=== PATIENT | male | born 1940 | race Caucasian/White ===

== ENCOUNTER 2017-08-03 07:27 | Inpatient (IN) | payer OTHER, MEDICARE ==
[~2017-08-03] VITALS: Ht 172.7 cm; Wt 87.7 kg
[2017-08-03] VITALS (12 sets, daily range): BP systolic 111–185; BP diastolic 58–95; PULSE 77–124; RESP 16–20; TEMP 96.4–98.6; O2SAT 94–98
[~2017-08-03 07:27] MED LIST: ALPR-138 PO; ASPI81TA82 PO; ATEN1TAB75 PO; BACT800T5 PO; DYAZ37.52 PO; FENO54TA PO; HYDR-3534 PO; LANTUS2P SC; LISI40TA PO
[2017-08-03] MEDS ORDERED: SODIUM CHLOR 0.9% 1000 ML INJ 1,000 ML IV SCH ×2 (07:41→12:15)
[2017-08-03] MEDS ORDERED: LIDOCAINE VISCOUS 2% SOLN 15 ML UDC PO ONE (07:45)
[2017-08-03] MEDS ORDERED: ALUMINUM/MAGNESIUM/SIMETH 30 ML CUP PO ONE (07:45)
[2017-08-03] MEDS ORDERED: PANTOPRAZOLE SODIUM 40 MG VIAL IVP ONE (07:45)
[2017-08-03] MEDS ORDERED: DICYCLOMINE HCL 20 MG/2 ML VIAL IM ONE (07:45)
[2017-08-03] MEDS ORDERED: FAMOTIDINE 20 MG/2 ML VIAL IV PUSH ONE (07:45)
--- NOTE | 2017-08-03 07:47 | PD ---
HPI Chief Complaint: GI Complaint Time Seen by Provider: 07:41 Travel History International Travel<30 days: No Contact w/Intl Traveler<30days: No Traveled to known affect area: No History of Present Illness HPI Patient presents with complaints of nausea vomiting and diarrhea. Evaluated at [facility] yesterday and prescribed Reglan. Patient did not fill prescription. Reports generalized weakness. Reports concerns of dysphagia. States he is unable to take his medications this morning. Complains of generalized weakness. Complains of nausea without vomiting. Received of 300 cc normal saline and Zofran in route. Blood sugar in route 400. History of anxiety hypertension diabetes and hyperlipidemia. States he is taking none of his oral medications for approximately 3 days. He did take his Lantus last night. PFSH Past Medical History Arthritis: Yes Anxiety: Yes Cancer: Yes (SKIN) High Cholesterol: Yes Diabetes: Yes Diminished Hearing: Yes (no hearing aids) Diverticulitis: Yes GERD: Yes Genitourinary: Yes (decreased kidney function, difficulty urinating enlarged prostate) Hypertension: Yes Past Surgical History Abdominal Surgery: Yes (RIGHT HERNIA INGUINAL ) Cholecystectomy: Yes Tonsillectomy: Yes Social History Alcohol Use: Yes (6-7 BEERS a day) Tobacco Use: No (quit 14 yrs ago smoked cigars, pipes and cigs) Substance Use: No Allergies-Medications (Allergen,Severity, Reaction): Coded Allergies: No Known Allergies (Verified , 10/24/15) Reported Meds & Prescriptions Reported Meds & Active Scripts Active Reported Vitamin E 200 Unit Cap 200 Units PO DAILY Milk Thistle 500 Mg Capsule 1,000 Mg PO DAILY Cranberry Urinary Comfort (Vitamins C & E) 1 Cap 1 Cap PO DAILY [place]-3 Fish Oil/Vitamin (Fish Oil-Cholecalciferol) 1,000-1,000 Mg Cap 1 Cap PO DAILY Atenolol 100 Mg Tab 100 Mg PO DAILY Ranitidine (Ranitidine HCl) 150 Mg Tab 150 Mg PO BID Fenofibrate Micronized 134 Mg Cap 134 Mg PO DAILY Glimepiride 4 Mg Tab 4 Mg PO BIDAC Lisinopril 40 Mg Tab 40 Mg PO DAILY Triamterene-Hydrochlorothiazide 37.5-25 Mg Cap 2 Cap PO DAILY Alprazolam 0.25 Mg Tab 0.25 Mg PO DAILY PRN Tamsulosin (Tamsulosin HCl) 0.4 Mg Cap 0.4 Mg PO HS Lantus Inj (Insulin Glargine) 1,000 Unit/10 Ml Vial 30 Units SQ BID Review of Systems General / Constitutional: No: Fever Eyes: No: Visual changes HENT: No: Headaches Cardiovascular: No: Chest Pain or Discomfort Respiratory: No: Shortness of Breath Gastrointestinal: Positive: Nausea, Vomiting, Diarrhea, No: Abdominal Pain Genitourinary: No: Dysuria Musculoskeletal: No: Pain Skin: No Rash Neurologic: No: Weakness Psychiatric: No: Depression Endocrine: No: Polydipsia Hematologic/Lymphatic: No: Easy Bruising Physical Exam Narrative GENERAL: Well-nourished, well-developed patient. SKIN: Focused skin assessment warm/dry. HEAD: Normocephalic. EYES: No scleral icterus. No injection or drainage. NECK: Supple, trachea midline. No JVD or lymphadenopathy. CARDIOVASCULAR: Regular rate and rhythm without murmurs, gallops, or rubs. RESPIRATORY: Breath sounds equal bilaterally. No accessory muscle use. GASTROINTESTINAL: Abdomen soft, non-tender, nondistended. MUSCULOSKELETAL: No cyanosis, or edema. BACK: Nontender without obvious deformity. No CVA tenderness. Data Data Last Documented VS Vital Signs Date Time Temp Pulse Resp B/P (MAP) Pulse Ox O2 Delivery O2 Flow Rate FiO2 08/03/17 11:03 124 16 163/95 (117) 97 Room Air 08/03/17 07:29 97.8 Orders Orders Complete Blood Count With Diff (08/03/17 07:41) Comprehensive Metabolic Panel (08/03/17 07:41) Lipase (08/03/17 07:41) Lactic Acid (08/03/17 07:41) Urinalysis - C+S If Indicated (08/03/17 07:41) Iv Access Insert/Monitor (08/03/17 07:41) Ecg Monitoring (08/03/17 07:41) Oximetry (08/03/17 07:41) Pantoprazole Inj (Protonix Inj) (08/03/17 07:45) Sodium Chlor 0.9% 1000 Ml Inj (Ns 1000 M (08/03/17 07:41) Sodium Chloride 0.9% Flush (Ns Flush) (08/03/17 07:45) Famotidine Inj (Pepcid Inj) (08/03/17 07:45) Dicyclomine Inj (Bentyl Inj) (08/03/17 07:45) Al-Mag Hy-Si 40-40-4 Mg/Ml Liq (Mag-Al P (08/03/17 07:45) Lidocaine 2% Viscous (Xylocaine 2% Visco (08/03/17 07:45) Famotidine (Pepcid) (08/03/17 08:30) Ct Abd/Pel W Iv Contrast(Rout) (08/03/17 ) Iodixanol 320 Inj (Rad Ct) (Visipaque 32 (08/03/17 10:40) Labetalol Inj (Trandate Inj) (08/03/17 11:15) Electrocardiogram (08/03/17 ) Sodium Chlor 0.9% 1000 Ml Inj (Ns 1000 M (08/03/17 12:15) Admit To Inpatient (08/03/17 ) Vital Signs (Adult) GA.Q4H (08/03/17 12:22) Activity Oob With Assistance (08/03/17 12:22) Diet Clear Liquid (08/03/17 Lunch) Sodium Chlor 0.45% 1000 Ml Inj (1/2 Ns 1 (08/03/17 12:22) Inpatient Certification (08/03/17 ) Blood Culture (08/03/17 12:23) Blood, Urine (08/03/17 12:24) Basic Metabolic Panel (Bmp) (08/04/17 06:00) Admit Order (Ed Use Only) (08/03/17 ) Vital Signs (Adult) Q4H (08/03/17 12:25) Diet Heart Healthy (08/03/17 Lunch) Activity Oob With Assistance (08/03/17 12:25) Notify Dr: Other (08/03/17 12:25) Labs Laboratory Tests Test 08/03/17 07:45 08/03/17 08:10 Urine Collection Type CLEAN CATCH Urine Color YELLOW Urine Turbidity CLEAR Urine pH 5.5 Urine Specific [place] 1.015 Urine Protein 30 mg/dL Urine Glucose (UA) 1000 OR GREATER mg/dL Urine Ketones 15 mg/dL Urine Occult Blood MOD Urine Nitrite NEG Urine Bilirubin NEG Urine Urobilinogen 0.2 MG/DL Urine Leukocyte Esterase NEG Urine RBC 0-3 /hpf Urine Squamous Epithelial Cells 0-5 /hpf Urine Transitional Epithelial Cells 0-5 /hpf Urine Amorphous Sediment FEW Microscopic Urinalysis Comment CULT NOT INDICATED Urine Collection Time 0745 White Blood Count 13.1 TH/MM3 Red Blood Count 5.64 MIL/MM3 Hemoglobin 15.1 GM/DL Hematocrit 45.2 % Mean Corpuscular Volume 80.1 FL Mean Corpuscular Hemoglobin 26.8 PG Mean Corpuscular Hemoglobin Concent 33.4 % Red Cell Distribution Width 14.7 % Platelet Count 156 TH/MM3 Mean Platelet Volume 7.9 FL Neutrophils (%) (Auto) 90.9 % Lymphocytes (%) (Auto) 3.8 % Monocytes (%) (Auto) 4.8 % Eosinophils (%) (Auto) 0.1 % Basophils (%) (Auto) 0.4 % Neutrophils # (Auto) 11.9 TH/MM3 Lymphocytes # (Auto) 0.5 TH/MM3 Monocytes # (Auto) 0.6 TH/MM3 Eosinophils # (Auto) 0.0 TH/MM3 Basophils # (Auto) 0.1 TH/MM3 CBC Comment DIFF FINAL Differential Comment Blood Urea Nitrogen 49 MG/DL Creatinine 1.80 MG/DL Random Glucose 406 MG/DL Total Protein 6.8 GM/DL Albumin 3.1 GM/DL Calcium Level 7.7 MG/DL Alkaline Phosphatase 62 U/L Aspartate Amino Transf (AST/SGOT) 40 U/L Alanine Aminotransferase (ALT/SGPT) 26 U/L Total Bilirubin 1.1 MG/DL Sodium Level 138 MEQ/L Potassium Level 3.7 MEQ/L Chloride Level 102 MEQ/L Carbon Dioxide Level 20.0 MEQ/L Anion Gap 16 MEQ/L Estimat Glomerular Filtration Rate 37 ML/MIN Lactic Acid Level 3.9 mmol/L Lipase 57 U/L [facility] Medical Decision Making Medical Screen Exam Complete: Yes Emergency Medical Condition: Yes Differential Diagnosis Viral enteritis, gastritis, generalized weakness, hypokalemia, dehydration Narrative Course Assessment and plan discussed the patient at bedside. EKG sinus rhythm with sinus arrhythmia rate of 82 assessment plan discussed the patient at bedside. Labs reveal a leukocytosis of 13.1, new renal insufficiency with a BUN/ creatinine of 49 and 1.8, elevated lactic acid of 3.9 and elevated blood sugar 400. Last 72 hours Impressions Abdomen/Pelvis CT 08/03/17 0000 Signed Impressions: Service Date/Time: Thursday, August 03, 2017 10:27 - CONCLUSION: 1. Mild diverticulosis with no inflammatory change. 2. Apparent mild wall thickening involving the proximal duodenum with apparent mild surrounding inflammatory change. These findings are nonspecific but could represent ulcer disease or duodenitis. 3. Status post cholecystectomy. 4. Mild hepatic steatosis. 5. Small pleural effusions left greater than right. Samuel Lauren MD Physician Communication Physician Communication Spoke with Dr. Bey who is in agreement will admit for observation Diagnosis Primary Impression: Nausea and vomiting Qualified Codes: R11.2 - Nausea with vomiting, unspecified Additional Impressions: Diarrhea Qualified Codes: R19.7 - Diarrhea, unspecified Leukocytosis Qualified Codes: D72.829 - Elevated white blood cell count, unspecified Acute renal insufficiency Elevated lactic acid level Elevated blood sugar Duodenitis Admitting Information Admitting Physician Requests: Observation Zachary Segal MD Aug 03, 2017 07:47
[2017-08-03] MEDS ORDERED: LANTUS2P SQ (07:48)
[2017-08-03 08:20] LABS: AUTOMATED NEUTROPHIL # 11.9 TH/MM3 (1.8-7.7); BASOPHIL # 0.1 TH/MM3 (0-0.2); BASOPHIL % 0.4 % (0.0-2.0); EOSINOPHIL % 0.1 % (0.0-4.0); HEMATOCRIT 45.2 % (39.0-51.0); HEMOGLOBIN 15.1 GM/DL (13.0-17.0); LYMPH % 3.8 % (9.0-44.0); LYMPHOCYTE # 0.5 TH/MM3 (1.0-4.8); MEAN CELL VOLUME 80.1 FL (80.0-100.0); MEAN CORPUSCULAR HEMOGLOBIN 26.8 PG (27.0-34.0); MEAN CORPUSCULAR HGB CONC 33.4 % (32.0-36.0); MEAN PLATELET VOLUME 7.9 FL (7.0-11.0); MONO % 4.8 % (0.0-8.0); MONOCYTE # 0.6 TH/MM3 (0-0.9); NEUT % 90.9 % (16.0-70.0); PLATELET COUNT 156 TH/MM3 (150-450); RED BLOOD COUNT 5.64 MIL/MM3 (4.50-5.90); RED CELL DISTRIBUTION WIDTH 14.7 % (11.6-17.2); WHITE BLOOD COUNT 13.1 TH/MM3 (4.0-11.0)
[2017-08-03 08:21] LABS: BILIRUBIN, URINE NEG (NEG); BLOOD, URINE MOD (NEG); GLUCOSE,URINE 1000 OR GREATER mg/dL (NEG); KETONE, URINE 15 mg/dL (NEG); NITRITE,URINE NEG (NEG); PH, URINE 5.5 (5.0-8.5); URINE COLOR YELLOW (YELLW/STRAW); URINE LEUKOCYTE ESTERASE NEG (NEG)
[2017-08-03 08:27] LABS: RBC, URINE 0-3 /hpf (0-3); SQUAMOUS EPITHELIAL CELL URINE 0-5 /hpf (0-5)
[2017-08-03 08:28] LABS: AMORPHOUS SEDIMENT, URINE FEW; TRANSITIONAL EPI CELLS, URINE 0-5 /hpf
[2017-08-03 08:28] LABS: CHLORIDE 102 MEQ/L (98-107); SODIUM (NA) 138 MEQ/L (136-145)
[2017-08-03] MEDS ORDERED: FAMOTIDINE 20 MG TAB PO ONE (08:30)
[2017-08-03 08:31] LABS: CALCIUM 7.7 MG/DL (8.5-10.1)
[2017-08-03 08:32] LABS: ALBUMIN 3.1 GM/DL (3.4-5.0)
[2017-08-03 08:53] LABS: ALKALINE PHOSPHATASE 62 U/L (45-117); ALT (GPT) 26 U/L (12-78); AST (GOT) 40 U/L (15-37); BLOOD UREA NITROGEN 49 MG/DL (7-18); GLOMERULAR FILTRATION RATE 37 ML/MIN (>89); GLUCOSE,RANDOM 406 MG/DL (74-106); TOTAL BILIRUBIN ADULT 1.1 MG/DL (0.2-1.0); TOTAL PROTEIN 6.8 GM/DL (6.4-8.2)
[2017-08-03] MEDS ORDERED: ATEN100T PO (08:56)
[2017-08-03] MEDS ORDERED: TAMS0.4C4 PO (08:56)
[2017-08-03] MEDS ORDERED: RANI150T PO (08:56)
[2017-08-03] MEDS ORDERED: ALPR0.25 PO (08:56)
[2017-08-03] MEDS ORDERED: TRIA37.53 PO (08:56)
[2017-08-03] MEDS ORDERED: FENO134C PO (08:56)
[2017-08-03] MEDS ORDERED: GLIM4TAB PO (08:56)
[2017-08-03] MEDS ORDERED: LISI40TA PO (08:56)
[2017-08-03] MEDS ORDERED: VITA200C3 PO (08:59)
[2017-08-03] MEDS ORDERED: OMEGCAP PO (08:59)
[2017-08-03] MEDS ORDERED: CRANCAP2 PO (08:59)
[2017-08-03] MEDS ORDERED: MILK500C2 PO (08:59)
[2017-08-03] MEDS ORDERED: IODIXANOL 320 MG/ML 10 ML VIAL (for Rad CT) IVCONTRAST ONE (10:40)
--- NOTE | 2017-08-03 10:52 | RADRPT ---
EXAM DATE/TIME: 08/03/2017 10:27 [place] COMPARISON: No previous studies available for comparison. INDICATIONS : Nausea, abdomen pain. IV CONTRAST: 50 cc Visipaque (iodixanol) IV ORAL CONTRAST: No oral contrast ingested. RADIATION DOSE: 16.84 CTDIvol (mGy) MEDICAL HISTORY : Hypercholesterolemia. Hypertension. Diverticulitis. Decreased kidney function, low urine output, enla rged prostate SURGICAL HISTORY : Cholecystectomy. Inguinal hernia repair. ENCOUNTER: Initial ACUITY: 2 days PAIN SCALE: 7/10 LOCATION: diffuse abdomen TECHNIQUE: Volumetric scanning of the abdomen and pelvis was performed. Using automated exposure control and ad justment of the mA and/or kV according to patient size, radiation dose was kept as low as reasonably achievable to obtain optimal diagnostic quality images. DICOM format image data is available electro nically for review and comparison. FINDINGS: LOWER LUNGS: There is small bilateral pleural effusions left greater than right. LIVER: Homogeneous density without lesion. There is no dilation of the biliary tree. The patient is status post cholecystectomy. There is mild hepatic steatosis. SPLEEN: Normal size without lesion. PANCREAS: Within normal limits. KIDNEYS: Normal in size and shape. There is no solid mass, stone or hydronephrosis. There is a simple cyst ex tending off the lower pole of the right kidney. ADRENAL GLANDS: Within normal limits. VASCULAR: There is no aortic aneurysm. BOWEL/MESENTERY: Scattered diverticuli are present greatest in the sigmoid colon. No wall thickening or inflammatory c hange. There is apparent mild circumferential wall thickening involving the proximal duodenum measuri ng up to 8 mm with apparent mild surrounding inflammatory change. No oral contrast was given limiting the sensitivity exam. There is no free air or ascites. ABDOMINAL WALL: Within normal limits. RETROPERITONEUM: There is no lymphadenopathy. BLADDER: No wall thickening or mass. REPRODUCTIVE: Within normal limits. INGUINAL: There is no lymphadenopathy or hernia. MUSCULOSKELETAL: Within normal limits for patient age. CONCLUSION: 1. Mild diverticulosis with no inflammatory change. 2. Apparent mild wall thickening involving the proximal duodenum with apparent mild surrounding infla mmatory change. These findings are nonspecific but could represent ulcer disease or duodenitis. 3. Status post cholecystectomy. 4. Mild hepatic steatosis. 5. Small pleural effusions left greater than right. Samuel Lauren MD on August 03, 2017 at 10:45 Board Certified Radiologist. This report was verified electronically.
[2017-08-03] MEDS ORDERED: LABETALOL HCL 100 MG/20 ML VIAL IV PUSH ONE (11:15)
[2017-08-03] MEDS ORDERED: GLUCAGON 1 MG/ML VIAL OTHER PRN (12:30)
[2017-08-03] MEDS ORDERED: DEXTROSE 50% IN WATER 50 ML VIAL(D50) IV PUSH PRN (12:30)
[2017-08-03] MEDS ORDERED: ONDANSETRON ODT 4 MG TAB PO PRN (13:15)
[2017-08-03] MEDS ORDERED: ONDANSETRON HCL 4 MG/2 ML VIAL IV PUSH PRN (13:15)
--- NOTE | 2017-08-03 13:15 | HHI.HP ---
HPI Service [place] [facility] Primary Care Physician Ambrosio Bolivar MD Admission Diagnosis abd pain Diagnoses: Chief Complaint: Nausea vomiting diarrhea Travel History International Travel<30 Days: No Contact w/Intl Traveler <30 Da: No Traveled to Known Affected Are: No History of Present Illness 77-year-old white male being admitted for intractable nausea vomiting lactic acidosis. Patient was in his usual state of health until about 4-5 days ago when he began developing some diarrhea and abdominal cramping. This was followed by nausea and vomiting that would occur postprandially as well as on an empty stomach. He describes vomiting "bile" but also has a tile with him which shows what appears to be some dried coffee-ground type emesis. Says that he went to [facility] was given Reglan discharge home. Says that his last bout of diarrhea was yesterday evening but says that he still been having some vomiting and overall thinks he has vomited over 20 times over the past few days. Says that he has trouble is holding down water, will vomit that as well. He also feels like his throat is now very sore and has some trouble getting some pills down as well. Patient says that he has not taken his insulin for the past few days due to poor p.o. intake except for last night where he gave himself with certain dose. In the emergency room he was found to be very dehydrated with a creatinine elevated to 1.8 and lactic acid of 3.9. Glucose is over 400. Blood cultures were obtained. Patient was given normal saline bolus. CT scan showed possible duodenitis. Review of Systems Except as stated in HPI: all other systems reviewed are Neg Past Family Social History Past Medical History Uncontrolled diabetes, hypertension, BPH Past Surgical History Abdominal Surgery: Yes (RIGHT HERNIA INGUINAL ) Cholecystectomy: Yes Tonsillectomy: Yes Allergies: Coded Allergies: No Known Allergies (Verified , 10/24/15) Social History Lifelong history of smoking until about 18 years ago Drank about 14 beers a day up until about 1 years ago for many years Physical Exam Vital Signs Vital Signs Date Time Temp Pulse Resp B/P (MAP) Pulse Ox O2 Delivery O2 Flow Rate FiO2 08/03/17 11:03 124 16 163/95 (117) 97 Room Air 08/03/17 09:20 92 16 185/93 (123) 96 Room Air 08/03/17 07:40 16 97 Room Air 08/03/17 07:29 97.8 88 16 177/85 (115) 96 Physical Exam VS: afebrile GENERAL: Lying in bed, no acute distress, well-nourished male SKIN: Warm and dry. EYES: No scleral icterus. No injection or drainage. ENT: No nasal bleeding or discharge. Mucous membranes pink and moist. CARDIOVASCULAR: Regular rate and rhythm. no murmurs RESPIRATORY: No accessory muscle use. Clear to auscultation. Breath sounds equal bilaterally. GASTROINTESTINAL: Abdomen soft, mildly distended abdomen which is apparently chronic, very mild tenderness to palpation over the lower abdomen Extremities: No clubbing, cyanosis, or edema. No obvious deformities. MUSCULOSKELETAL: adequate muscle bulk and tone for age and habitus NEUROLOGICAL: Awake and alert. No obvious cranial nerve deficits. No facial droop nor slurred speech noted. PSYCHIATRIC: Appropriate mood and affect; insight and judgment normal. Laboratory Laboratory Tests Test 08/03/17 07:45 08/03/17 08:10 Urine Collection Type CLEAN CATCH Urine Color YELLOW Urine Turbidity CLEAR Urine pH 5.5 Urine Specific [place] 1.015 Urine Protein 30 Urine Glucose (UA) 1000 OR GREATER Urine Ketones 15 Urine Occult Blood MOD Urine Nitrite NEG Urine Bilirubin NEG Urine Urobilinogen 0.2 Urine Leukocyte Esterase NEG Urine RBC 0-3 Urine Squamous Epithelial Cells 0-5 Urine Transitional Epithelial Cells 0-5 Urine Amorphous Sediment FEW Microscopic Urinalysis Comment CULT NOT INDICATED Urine Collection Time 0745 White Blood Count 13.1 Red Blood Count 5.64 Hemoglobin 15.1 Hematocrit 45.2 Mean Corpuscular Volume 80.1 Mean Corpuscular Hemoglobin 26.8 Mean Corpuscular Hemoglobin Concent 33.4 Red Cell Distribution Width 14.7 Platelet Count 156 Mean Platelet Volume 7.9 Neutrophils (%) (Auto) 90.9 Lymphocytes (%) (Auto) 3.8 Monocytes (%) (Auto) 4.8 Eosinophils (%) (Auto) 0.1 Basophils (%) (Auto) 0.4 Neutrophils # (Auto) 11.9 Lymphocytes # (Auto) 0.5 Monocytes # (Auto) 0.6 Eosinophils # (Auto) 0.0 Basophils # (Auto) 0.1 CBC Comment DIFF FINAL Differential Comment Blood Urea Nitrogen 49 Creatinine 1.80 Random Glucose 406 Total Protein 6.8 Albumin 3.1 Calcium Level 7.7 Alkaline Phosphatase 62 Aspartate Amino Transf (AST/SGOT) 40 Alanine Aminotransferase (ALT/SGPT) 26 Total Bilirubin 1.1 Sodium Level 138 Potassium Level 3.7 Chloride Level 102 Carbon Dioxide Level 20.0 Anion Gap 16 Estimat Glomerular Filtration Rate 37 Lactic Acid Level 3.9 Lipase 57 Date/Time Source Procedure Growth Status 08/03/17 12:44 Blood Peripheral Aerobic Blood Culture Pending Received 08/03/17 12:44 Blood Peripheral Anaerobic Blood Culture Pending Received Result Diagram: 08/03/17 0810 08/03/17 0810 Imaging Last Impressions Abdomen/Pelvis CT 08/03/17 0000 Signed Impressions: Service Date/Time: Thursday, August 03, 2017 10:27 - CONCLUSION: 1. Mild diverticulosis with no inflammatory change. 2. Apparent mild wall thickening involving the proximal duodenum with apparent mild surrounding inflammatory change. These findings are nonspecific but could represent ulcer disease or duodenitis. 3. Status post cholecystectomy. 4. Mild hepatic steatosis. 5. Small pleural effusions left greater than right. MD Alicja Dutta VTE Risk Assessment Caprini VTE Risk Assessment: Mod/High Risk (score >= 2) VTE Pharm Contraindication: Hemorrhage Caprini Risk Assessment Model Point Value = 1 Point Value = 2 Point Value = 3 Point Value = 5 Age 41-60 Minor surgery BMI > 25 kg/m2 Swollen legs Varicose veins or History of unexplained or recurrent spontaneous Oral contraceptives or hormone replacement Sepsis (< 1 month) Serious lung disease, including pneumonia (< 1 month) Abnormal pulmonary function Acute myocardial infarction Congestive heart failure (< 1 month) History of inflammatory bowel disease Medical patient at bed rest Age 61-74 Arthroscopic surgery Major open surgery (> 45 min) Laparoscopic surgery (> 45 min) Malignancy Confined to bed (> 72 hours) Immobilizing plaster cast Central venous access Age >= 75 History of VTE Family history of VTE Factor V Leiden Prothrombin [id number] Lupus anticoagulant Anticardiolipin antibodies Elevated serum homocysteine Heparin-induced thrombocytopenia Other congenital or acquired thrombophilia Stroke (< 1 month) Elective arthroplasty Hip, pelvis, or leg fracture Acute spinal cord injury (< 1 month) Prophylaxis Regimen Total Risk Factor Score Risk Level Prophylaxis Regimen 0-1 Low Early ambulation 2 Moderate Order ONE of the following: *Sequential Compression Device (SCD) *Heparin 5000 units SQ BID 3-4 Higher Order ONE of the following medications: *Heparin 5000 units SQ TID *Enoxaparin/Lovenox 40 mg SQ daily (WT < 150 kg, CrCl > 30 mL/min) *Enoxaparin/Lovenox 30 mg SQ daily (WT < 150 kg, CrCl > 10-29 mL/min) *Enoxaparin/Lovenox 30 mg SQ BID (WT < 150 kg, CrCl > 30 mL/min) AND/OR *Sequential Compression Device (SCD) 5 or more Highest Order ONE of the following medications: *Heparin 5000 units SQ TID (Preferred with Epidurals) *Enoxaparin/Lovenox 40 mg SQ daily (WT < 150 kg, CrCl > 30 mL/min) *Enoxaparin/Lovenox 30 mg SQ daily (WT < 150 kg, CrCl > 10-29 mL/min) *Enoxaparin/Lovenox 30 mg SQ BID (WT < 150 kg, CrCl > 30 mL/min) AND *Sequential Compression Device (SCD) Assessment and Plan Assessment and Plan 77-year-old white male being admitted for intractable nausea vomiting. Patient most likely had initially an acute bout of viral gastroenteritis which was then subsequently followed by borderline diabetic ketoacidosis. Intractable nausea vomiting -Likely secondary to borderline diabetic ketoacidosis superimposed upon viral acute gastroneuritis -Positive coffee-ground emesis, consulting GI given possibility of Kailee- Szymanski tear versus esophageal varices -Protonix IV for now, if h/h starts dropping can start octreotide and protonix drips -Zofran as needed Diarrhea -Nearly resolved, monitor Lactic acidosis -Likely secondary to diabetic ketoacidosis along with dehydration, replace with IV fluids, repeat, blood cultures pending although there do not appear to be very strong signs of an acute bacterial infection, monitor for any fevers start antibiotics if acute picture appears worse. Leukocytosis appears quite mild in comparison to the rest of the patient's symptoms, dissipate this is stress induced from vomiting, monitor in a.m. [place] -Hold triamterene/HCTZ as well as lisinopril until renal function recovers Borderline DKA -Gap is at 16, will start moderate dose sliding scale given the patient's impaired renal function to avoid insulin overdose BPH - flomax Physician Certification 2 Midnight Certification Type: Admission for Inpatient Services Order for Inpatient Services The services are ordered in accordance with Medicare regulations or non- Medicare payer requirements, as applicable. In the case of services not specified as inpatient-only, they are appropriately provided as inpatient services in accordance with the 2-midnight benchmark. Estimated LOS (days): 2 2 days is the estimated time the patient will need to remain in the hospital, assuming treatment plan goals are met and no additional complications. Post-Hospital Plan: Not yet determined Bubba Bey MD Aug 03, 2017 13:15
[2017-08-03] MEDS ORDERED: BENZOCAINE-MENTHOL (SUGAR FREE) 15 MG-3.6 MG LOZENGE BUCCAL PRN (13:30)
[2017-08-03] MEDS ORDERED: INSULIN NovoLIN REGULAR SUPPLEMENTAL SCALE SQ PRN ×2 (14:15→14:45)
[2017-08-03] MEDS: SODIUM CHLOR 0.45% 1000 ML INJ 1,000 ML IV SCH (15:34)
[2017-08-03] MEDS: INSULIN NovoLIN REGULAR SUPPLEMENTAL SCALE SQ SCH ×2 (17:37→20:53)
[2017-08-03] MEDS: SODIUM CHLORIDE 0.9% FLUSH 10 ML FLUSH IV FLUSH PRN (20:50)
[2017-08-03] MEDS: PANTOPRAZOLE SODIUM 40 MG VIAL IV PUSH SCH (20:50)
[2017-08-03] MEDS: FAMOTIDINE 20 MG TAB PO SCH (20:54)
[2017-08-03] MEDS: TAMSULOSIN HCL 0.4 MG CAP PO SCH (20:54)
[2017-08-03] MEDS: ALPRAZolam 0.25 MG TAB PO PRN (23:57)
[2017-08-04 04:00] VITALS: BP 118/65; PULSE 80; RESP 17; TEMP 97.6; O2SAT 95
[2017-08-04] MEDS: SODIUM CHLOR 0.45% 1000 ML INJ 1,000 ML IV SCH ×2 (05:31→16:23)
[2017-08-04 06:20] LABS: AUTOMATED NEUTROPHIL # 8.9 TH/MM3 (1.8-7.7); BASOPHIL # 0.4 TH/MM3 (0-0.2); BASOPHIL % 3.5 % (0.0-2.0); EOSINOPHIL % 0.2 % (0.0-4.0); HEMATOCRIT 40.2 % (39.0-51.0); HEMOGLOBIN 13.9 GM/DL (13.0-17.0); LYMPH % 9.5 % (9.0-44.0); LYMPHOCYTE # 1.1 TH/MM3 (1.0-4.8); MEAN CELL VOLUME 80.7 FL (80.0-100.0); MEAN CORPUSCULAR HEMOGLOBIN 27.9 PG (27.0-34.0); MEAN CORPUSCULAR HGB CONC 34.5 % (32.0-36.0); MEAN PLATELET VOLUME 7.6 FL (7.0-11.0); MONO % 8.9 % (0.0-8.0); NEUT % 77.9 % (16.0-70.0); PLATELET COUNT 137 TH/MM3 (150-450); RED BLOOD COUNT 4.98 MIL/MM3 (4.50-5.90); RED CELL DISTRIBUTION WIDTH 14.5 % (11.6-17.2); WHITE BLOOD COUNT 11.4 TH/MM3 (4.0-11.0)
[2017-08-04 06:45] LABS: CALCIUM 7.5 MG/DL (8.5-10.1); CREATININE 1.3 MG/DL (0.60-1.30)
[2017-08-04 08:00] VITALS: BP 132/72; PULSE 107; RESP 14; TEMP 98.3; O2SAT 95
[2017-08-04] MEDS: FAMOTIDINE 20 MG TAB PO SCH ×2 (08:16→21:07)
[2017-08-04] MEDS: ATENOLOL 50 MG TAB PO SCH (08:16)
[2017-08-04] MEDS: INSULIN NovoLIN REGULAR SUPPLEMENTAL SCALE SQ SCH ×4 (08:16→21:06)
[2017-08-04] MEDS: PANTOPRAZOLE SODIUM 40 MG VIAL IV PUSH SCH (08:17)
[2017-08-04] MEDS ORDERED: NON-FORMULARY DRUG (Vitamins C & E (Cranberry Urinary Comfort) 1 CAP) PO SCH (09:00)
[2017-08-04] MEDS: LACTATED RINGER'S 1000 ML IV PRN ×2 (09:40→11:47)
--- NOTE | 2017-08-04 10:13 | PD.PROCEDR ---
GI Procedure PROCEDURE PERFORMED Coffee-ground emesis, dyspepsia, nausea vomiting INDICATION FOR PROCEDURE Upper endoscopy, polypectomy, biopsy PROCEDURE: The procedure, risks and benefits were discussed with Mr. Smith and informed consent was obtained. Anesthesia sedated him with Diprivan. He was placed in the left lateral decubitus position. EGD: The Pentax videoscope was introduced through the oropharynx and advanced to the second portion of the duodenum under direct visualization. Retroflexion was performed in the stomach. Biopsies were obtained and polypectomy ESTIMATED BLOOD LOSS: None SPECIMENS REMOVED: Distal esophagus, antrum, polyp from the body of the stomach, duodenum COMPLICATIONS: None IMPRESSION: Severe grade D esophagitis with deep ulcerations throughout the whole esophagus , the mucosa is actually turning black from the esophagitis or possible infection biopsy was performed Multiple small polyps in the body of the stomach 1 was removed completely for sampling with a polypectomy Mild gastritis biopsy was done from the antrum to rule out H. pylori Diffuse superficial ulcers throughout the duodenum was dark mucosa biopsy was done PLAN: No NSAIDs Gastrin level Await biopsy results Protonix 40 mg daily Diet as tolerated Ulyssse Cisneros MD Aug 04, 2017 10:13
--- NOTE | 2017-08-04 11:15 | MB ---
cc: Ulysses Cisneros MD DATE: 08/04/2017 REFERRING PHYSICIAN: Dr. Bey. REASON FOR REFERRAL: Nausea, vomiting. Thank you for the consultation. HISTORY OF PRESENT ILLNESS: A 77-year-old gentleman who has a history of diarrhea, abdominal cramping, about 4-5 days ago. Then, the patient started having significant nausea, vomiting and severe cramping with coffee-ground emesis. The patient was at [facility] and was given Reglan and discharged home, but then he continued to have this problem, so he came back, he vomited more than 20 times according to him with black material. The patient is diabetic and takes insulin. The patient also has chronic renal insufficiency. PAST MEDICAL HISTORY: Medical history significant for cholecystectomy, tonsillectomy, diabetes, hypertension, BPH. ALLERGIES: NO KNOWN DRUG ALLERGIES. SOCIAL HISTORY: Negative for tobacco for at least 18 years. He used to be a smoker before. Also, heavy drinker until about a year ago. FAMILY HISTORY: Noncontributory. REVIEW OF SYSTEMS: All 12-point negative except HPI, his nausea and vomiting subsided. PHYSICAL EXAMINATION: GENERAL: Alert, oriented. No acute distress. VITAL SIGNS: Stable. HEENT: Pupils are round, reactive to light. NECK: Supple. CHEST: Clear to auscultation and percussion. CARDIAC: Regular rate and rhythm. No murmur or gallop. ABDOMEN: Soft, nondistended. Minimal discomfort, obese. No hepatosplenomegaly. Positive bowel sounds. EXTREMITIES: No edema, clubbing or cyanosis. NEUROLOGIC: Alert, oriented. No muscular abnormality. No focal deficit. PSYCHE: Psychologically appropriate. LABORATORY DATA: White count 11.4, down from 13.1, hemoglobin 13.9, platelet 137. BUN 40, creatinine 1.3, AST 40, ALT 26, lipase 57. Abdominal CT scan showed mild diverticular disease with no inflammatory changes. Wall thickening involving the proximal duodenum with inflammatory changes. Mild hepatic steatosis. ASSESSMENT AND PLAN: A 77-year-old gentleman with diabetes, seems to be poorly controlled. The patient came complaining of nausea, vomiting and coffee-ground emesis, his hemoglobin is normal, his CT scan is normal, the patient will need upper endoscopy for evaluation of the abnormality on the CT scan and the nausea, vomiting. Patient will need better control of his diabetes, patient also seems to have fatty liver. He needs to have low fat diet and weight loss. Further plan depends on the findings of upper endoscopy. MD EHSAN Roach/NITA , 10:26 AM , 11:14 AM
[2017-08-04 12:00] VITALS: BP 122/64; PULSE 71; RESP 14; TEMP 97.5; O2SAT 98
--- NOTE | 2017-08-04 12:28 | EKG ---
Date Performed: 08/03/2017 Time Performed: 11:32:28 PTAGE: 77 years EKG: Sinus rhythm WITH SINUS ARRHYTHMIA MARKED LEFT AXIS DEVIATION LEFT VENTRICULAR HYPERTROPHY AND ST-T CHANGE ABNORM AL ECG Compared to PREVIOUS TRACING , nonspecific ST-T changes are now present. PREVIOUS TRACIN06/16/2014 09.45 DOCTOR: Evaristo Burris Interpretating Date/Time 08/04/2017 12:26:52
--- NOTE | 2017-08-04 12:52 | HHI.PR ---
Subjective Remarks Nursing denies any deterioration since last night. Patient reports improved abdominal and chest symptoms since admission. Much improved nausea since admission. Objective Vital Signs Date Time Temp Pulse Resp B/P (MAP) Pulse Ox O2 Delivery O2 Flow Rate FiO2 08/04/17 10:33 16 111/52 (71) 97 08/04/17 09:45 16 110/53 (72) 98 08/04/17 09:35 08/04/17 09:32 98.0 85 16 111/68 (82) 98 08/04/17 08:00 98.3 107 14 132/72 (92) 95 08/04/17 04:00 97.6 80 17 118/65 (82) 95 08/03/17 23:58 98.6 124 20 111/58 (75) 94 08/03/17 20:00 97.7 81 20 144/69 (94) 95 08/03/17 16:00 97.3 85 16 125/69 (87) 98 08/03/17 15:35 18 08/03/17 14:00 96.4 82 16 142/74 (96) 98 08/03/17 13:50 88 16 144/62 (89) 97 08/03/17 13:02 77 16 140/68 (92) 97 Room Air I/O 08/03/17 08/03/17 08/03/17 08/04/17 08/04/17 08/04/17 07:00 15:00 23:00 07:00 15:00 23:00 Intake Total 1240 ml 300 ml 500 ml Output Total 200 ml 600 ml Balance 1240 ml 100 ml -600 ml 500 ml Intake Oral 240 ml IV Total 1000 ml 300 ml 200 ml Other 300 ml Output Urine Total 200 ml 600 ml # Voids 2 4 Result Diagram: 08/04/1760408/04/17 0605 Objective Remarks Abdomen with no alicia tenderness to palpation, no rebound, soft Sitting up in bed, no acute distress, awake, alert A/P Assessment and Plan 77-year-old white male being admitted for intractable nausea vomiting. Patient most likely had initially an acute bout of viral gastroenteritis which was then subsequently followed by borderline diabetic ketoacidosis. nausea vomiting -Much improved since admission, likely secondary to viral gastroenteritis and diabetic ketoacidosis -EGD with findings showing severe esophageal ulcerations and gastritis -Transitioning to p.o. Protonix -Zofran as needed Esophageal ulcerations and gastritis -Gastrin level ordered by GI Lactic acidosis - Likely secondary to diabetic ketoacidosis along with dehydration, improving w / IVFs - blood cultures pending although there do not appear to be very strong signs of an acute bacterial infection, monitor for any fevers start antibiotics if acute picture appears worse. Leukocytosis resolving. [place] -Hold triamterene/HCTZ as well as lisinopril until renal function recovers - improving w/ IVFs Borderline DKA -resolved DM -Uncontrolled sugars, improved with medium dose sliding scale but still 190s and higher, fasting sugar today was in the 200s, upgrading for medium dose to high-dose sliding scale, starting Levemir 10 units tonight, at home patient is on 30 units of Lantus twice daily BPH - flomax lovenox Bubba Bey MD Aug 04, 2017 12:52
[2017-08-04 16:00] VITALS: BP 129/58; PULSE 70; RESP 16; TEMP 98.6; O2SAT 94
[2017-08-04] MEDS: ENOXAPARIN SODIUM 30 MG/0.3 ML SYRINGE SQ SCH (16:23)
[2017-08-04 20:00] VITALS: BP 119/59; PULSE 63; RESP 18; TEMP 99.3; O2SAT 96
[2017-08-04] MEDS: SODIUM CHLORIDE 0.9% FLUSH 10 ML FLUSH IV FLUSH PRN (20:54)
[2017-08-04] MEDS ORDERED: INSULIN DETEMIR 100 UNITS/ML VIAL SQ SCH (21:00)
[2017-08-04] MEDS: TAMSULOSIN HCL 0.4 MG CAP PO SCH (21:07)
[2017-08-04] MEDS: PANTOPRAZOLE SOD 40 MG DELAYED RELEASE TAB PO SCH (21:07)
[2017-08-04] MEDS: ALPRAZolam 0.25 MG TAB PO PRN (21:12)
[2017-08-05] VITALS: BP 122/62; PULSE 72; RESP 17; TEMP 98.9; O2SAT 99
[2017-08-05 04:00] VITALS: BP 118/65; PULSE 69; RESP 18; TEMP 98.5; O2SAT 98
[2017-08-05] MEDS: SODIUM CHLOR 0.45% 1000 ML INJ 1,000 ML IV SCH (04:41)
[2017-08-05 08:00] VITALS: BP 118/66; PULSE 62; RESP 15; TEMP 96.5; O2SAT 98
[2017-08-05] MEDS: INSULIN NovoLIN REGULAR SUPPLEMENTAL SCALE SQ SCH ×3 (08:00→17:13)
[2017-08-05] MEDS: FAMOTIDINE 20 MG TAB PO SCH (08:29)
[2017-08-05] MEDS: ATENOLOL 50 MG TAB PO SCH (08:30)
[2017-08-05] MEDS: PANTOPRAZOLE SOD 40 MG DELAYED RELEASE TAB PO SCH (08:30)
--- NOTE | 2017-08-05 08:30 | HHI.GIFU ---
Subjective Remarks Comfortable in bed feeling better Objective Vitals I&O Vital Signs Date Time Temp Pulse Resp B/P (MAP) Pulse Ox O2 Delivery O2 Flow Rate FiO2 08/05/17 08:00 96.5 62 15 118/66 (83) 98 08/05/17 04:00 98.5 69 18 118/65 (82) 98 08/05/17 00:00 98.9 72 17 122/62 (82) 99 08/04/17 20:00 99.3 63 18 119/59 (79) 96 08/04/17 16:00 98.6 70 16 129/58 (81) 94 08/04/17 12:00 97.5 71 14 122/64 (83) 98 08/04/17 10:33 16 111/52 (71) 97 08/04/17 09:45 16 110/53 (72) 98 08/04/17 09:35 08/04/17 09:32 98.0 85 16 111/68 (82) 98 I/O 08/04/17 08/04/17 08/04/17 08/05/17 08/05/17 08/05/17 07:00 15:00 23:00 07:00 15:00 23:00 Intake Total 1280 ml 643 ml 925 ml Output Total 600 ml 150 ml 450 ml Balance -600 ml 1280 ml 493 ml 475 ml Intake Oral 480 ml 118 ml IV Total 500 ml 525 ml 925 ml Other 300 ml Output Urine Total 600 ml 150 ml 450 ml # Voids 4 4 3 # Bowel Movements 0 Laboratory Laboratory Tests Test 08/04/17 13:30 Lactic Acid Level 1.6 Date/Time Source Procedure Growth Status 08/03/17 12:44 Blood Peripheral Aerobic Blood Culture - Preliminary NO GROWTH IN 1 DAY Resulted 08/03/17 12:44 Blood Peripheral Anaerobic Blood Culture - Preliminary NO GROWTH IN 1 DAY Resulted Imaging Last Impressions Abdomen/Pelvis CT 08/03/17 0000 Signed Impressions: Service Date/Time: Thursday, August 03, 2017 10:27 - CONCLUSION: 1. Mild diverticulosis with no inflammatory change. 2. Apparent mild wall thickening involving the proximal duodenum with apparent mild surrounding inflammatory change. These findings are nonspecific but could represent ulcer disease or duodenitis. 3. Status post cholecystectomy. 4. Mild hepatic steatosis. 5. Small pleural effusions left greater than right. Samuel Lauren MD Physical Exam HEENT: normocephalic; atraumatic; no jaundice. Throat is clear. NECK: Neck is supple, CHEST: Chest is clear to auscultation and percussion. CARDIAC: Regular rate and rhythm with no murmur gallop or rubs. ABDOMEN: Soft, nondistended, nontender; no hepatosplenomegaly; bowel sounds are present in all four quadrants. EXTREMITIES: No clubbing, cyanosis, or edema. SKIN: Normal; no rash; no jaundice. COMIC ILLUSTRATOR: No focal deficits; alert and oriented times three. Assessment and Plan Plan Patient presenting with nausea and vomiting with coffee-ground emesis, he has uncontrolled diabetes On endoscopy is found to have Severe grade D esophagitis with deep ulcerations throughout the whole esophagus , Multiple small polyps in the body of the stomach 1 was removed completely for sampling with a polypectomy Mild gastritis biopsy was done from the antrum to rule out H. pylori Diffuse superficial ulcers throughout the duodenum was dark mucosa biopsy was done Patient advised for better diabetes control Continue with PPI Protonix 40 mg twice daily Advance diet as tolerated Patient will need EGD in 2 months Follow-up with GI post discharge Avoid NSAIDs and aspirin Tashi Benavidez MD Aug 05, 2017 08:30
[2017-08-05] MEDS ORDERED: FENOFIBRATE 145 MG TAB PO SCH (09:00)
[2017-08-05] MEDS ORDERED: LIDOCAINE VISCOUS 2% SOLN 15 ML UDC SWISH-SWAL PRN (10:30)
[2017-08-05 12:00] VITALS: BP 126/66; PULSE 59; RESP 17; TEMP 98; O2SAT 98
[2017-08-05 12:14] LABS: CALCIUM 7.6 MG/DL (8.5-10.1)
[2017-08-05 12:15] LABS: BICARBONATE 24.2 MEQ/L (21.0-32.0)
[2017-08-05 12:18] LABS: CREATININE 1.3 MG/DL (0.60-1.30)
[2017-08-05] MEDS ORDERED: PANT40TA3 PO (12:50)
--- NOTE | 2017-08-05 12:51 | HHI.DCPOC ---
Discharge Care Plan Diagnosis: (1) Diabetic ketoacidosis (2) Esophageal ulcer (3) Gastritis (4) Acute renal insufficiency (5) Diarrhea (6) Nausea and vomiting Goals to Promote Your Health * To prevent worsening of your condition and complications * To maintain your health at the optimal level Directions to Meet Your Goals Take your medications as prescribed Follow your dietary instruction Follow activity as directed Keep your appointments as scheduled Take your immunizations and boosters as scheduled If your symptoms worsen call your PCP, if no PCP go to Urgent Care Center or Emergency Room Smoking is Dangerous to Your Health. Avoid second hand smoke Call the 24-hour hour crisis hotline for domestic abuse at Bubba Bey MD Aug 05, 2017 12:51
[2017-08-05] MEDS ORDERED: LIDO1SOL8 SWISH-SWAL (12:53)
[2017-08-05] MEDS ORDERED: GAVISUS PO (12:53)
--- NOTE | 2017-08-05 14:54 | HHI.DS ---
Discharge Summary Admission Date Aug 03, 2017 at 12:27 Discharge Date: Aug 05, 2017 Admitting Diagnosis abd pain (1) Esophageal ulcer ICD Code: K22.10 - Ulcer of esophagus without bleeding (2) Gastritis ICD Code: K29.70 - Gastritis, unspecified, without bleeding (3) Diabetic ketoacidosis ICD Code: E13.10 - Other specified diabetes mellitus with ketoacidosis without coma Procedures EGD Brief History - From Admission 77-year-old white male being admitted for intractable nausea vomiting lactic acidosis. Patient was in his usual state of health until about 4-5 days ago when he began developing some diarrhea and abdominal cramping. This was followed by nausea and vomiting that would occur postprandially as well as on an empty stomach. He describes vomiting "bile" but also has a tile with him which shows what appears to be some dried coffee-ground type emesis. Says that he went to [facility] was given Reglan discharge home. Says that his last bout of diarrhea was yesterday evening but says that he still been having some vomiting and overall thinks he has vomited over 20 times over the past few days. Says that he has trouble is holding down water, will vomit that as well. He also feels like his throat is now very sore and has some trouble getting some pills down as well. Patient says that he has not taken his insulin for the past few days due to poor p.o. intake except for last night where he gave himself with certain dose. In the emergency room he was found to be very dehydrated with a creatinine elevated to 1.8 and lactic acid of 3.9. Glucose is over 400. Blood cultures were obtained. Patient was given normal saline bolus. CT scan showed possible duodenitis. CBC/BMP: 08/04/17 0605 08/05/17 1155 Significant Findings Laboratory Tests Test 08/03/17 07:45 08/03/17 08:10 08/04/17 06:05 08/04/17 13:30 Urine Protein 30 mg/dL (NEG-TRACE) Urine Glucose (UA) 1000 OR GREATER mg/dL Urine Ketones 15 mg/dL (NEG) Urine Occult Blood MOD (NEG) White Blood Count 13.1 TH/MM3 (4.0-11.0) 11.4 TH/MM3 (4.0-11.0) Mean Corpuscular Hemoglobin 26.8 PG (27.0-34.0) Neutrophils (%) (Auto) 90.9 % (16.0-70.0) 77.9 % (16.0-70.0) Lymphocytes (%) (Auto) 3.8 % (9.0-44.0) Neutrophils # (Auto) 11.9 TH/MM3 (1.8-7.7) 8.9 TH/MM3 (1.8-7.7) Lymphocytes # (Auto) 0.5 TH/MM3 (1.0-4.8) Blood Urea Nitrogen 49 MG/DL (7-18) 40 MG/DL (7-18) Creatinine 1.80 MG/DL (0.60-1.30) Random Glucose 406 MG/DL (74-106) 208 MG/DL (74-106) Albumin 3.1 GM/DL (3.4-5.0) Calcium Level 7.7 MG/DL (8.5-10.1) 7.5 MG/DL (8.5-10.1) Aspartate Amino Transf (AST/SGOT) 40 U/L (15-37) Total Bilirubin 1.1 MG/DL (0.2-1.0) Carbon Dioxide Level 20.0 MEQ/L (21.0-32.0) 18.0 MEQ/L (21.0-32.0) Anion Gap 16 MEQ/L (5-15) Estimat Glomerular Filtration Rate 37 ML/MIN (>89) 53 ML/MIN (>89) Lactic Acid Level 3.9 mmol/L (0.4-2.0) Lipase 57 U/L (73-393) Platelet Count 137 TH/MM3 (150-450) Monocytes (%) (Auto) 8.9 % (0.0-8.0) Basophils (%) (Auto) 3.5 % (0.0-2.0) Monocytes # (Auto) 1.0 TH/MM3 (0-0.9) Basophils # (Auto) 0.4 TH/MM3 (0-0.2) Test 08/05/17 11:55 Blood Urea Nitrogen 31 MG/DL (7-18) Random Glucose 178 MG/DL (74-106) Calcium Level 7.6 MG/DL (8.5-10.1) Potassium Level 3.3 MEQ/L (3.5-5.1) Estimat Glomerular Filtration Rate 53 ML/MIN (>89) PE at Discharge No alicia abdominal tenderness to palpation No acute distress Hospital Course Patient was admitted, started on IV Protonix and emetics and IV fluids. GI performed an EGD which showed multiple severe ulcerations as well as severe gastritis. Patient tolerated clear liquids well with some mild but tolerable pain. Gastrin level was ordered to be followed up as an outpatient. Patient has met maximal benefit from hospitalization is clinically stable for discharge. Will need close follow-up with GI. Pt Condition on Discharge: Stable Discharge Disposition: Discharge Home Discharge Time: <= 30 minutes Discharge Instructions DIET: Follow Instructions for: Diabetic Diet Speech Therapy-Diet Recommends: Pudding Thickened Liquids Additional Diet Instructions: advance diet as tolerated Activities you can perform: Weight Bearing as Jan Follow up Referrals: Gastroenterology - 2 Weeks with Ulysses Cisneros MD PCP Follow-up - 1 Week with Madeline Burris MD New Medications: Aluminum Hydroxide-Mag Carb Liq (Gaviscon Liq) 95-358 Mg/15 Ml Susp 15-30 ML PO QID PRN for HEARTBURN, #1 BOTTLE 0 Refills Maximum 120 mL/24 hrs. Lidocaine Viscous Liq (Lidocaine Viscous Liq) 2 % Liqd 5 ML SWISH-SWAL QID PRN for PAIN, #1 BOTTLE 0 Refills Pantoprazole (Pantoprazole) 40 Mg Tab 40 MG PO Q12HR for ulcers, #60 TAB Continued Medications: Alprazolam (Alprazolam) 0.25 Mg Tab 0.25 MG PO DAILY PRN for ANXIETY, TAB 0 Refills Atenolol (Atenolol) 100 Mg Tab 100 MG PO DAILY for Blood Pressure Management, #30 TAB 0 Refills Fenofibrate Micronized (Fenofibrate Micronized) 134 Mg Cap 134 MG PO DAILY, #30 CAP 0 Refills Fish Oil-Cholecalciferol ([place]-3 Fish Oil/Vitamin) 1,000-1,000 Mg Cap 1 CAP PO DAILY for Nutritional Supplement, CAP 0 Refills Glimepiride (Glimepiride) 4 Mg Tab 4 MG PO BIDAC for Blood Sugar Management, #60 TAB 0 Refills Insulin Glargine Inj (Lantus Inj) 1,000 Unit/10 Ml Vial 30 UNITS SQ BID for Blood Sugar Management, VIAL 0 Refills Lisinopril (Lisinopril) 40 Mg Tab 40 MG PO DAILY for Blood Pressure Management, #30 TAB 0 Refills Milk Thistle (Milk Thistle) 500 Mg Capsule 1000 MG PO DAILY Ranitidine (Ranitidine) 150 Mg Tab 150 MG PO BID for Heartburn Management, #60 TAB 0 Refills Tamsulosin (Tamsulosin) 0.4 Mg Cap 0.4 MG PO HS for Manage Prostate Problems, #30 CAP 0 Refills Triamterene-Hydrochlorothiazide (Triamterene-Hydrochlorothiazide) 37.5-25 Mg Cap 2 CAP PO DAILY, #60 CAP 0 Refills Vitamin E (Vitamin E) 200 Unit Cap 200 UNITS PO DAILY for Nutritional Supplement, CAP 0 Refills Vitamins C & E (Cranberry Urinary Comfort) 1 Cap 1 CAP PO DAILY for Urinary Symptom Managemen, CAP 0 Refills Bubba Bey MD Aug 05, 2017 14:54
[2017-08-05] MEDS: ENOXAPARIN SODIUM 30 MG/0.3 ML SYRINGE SQ SCH (15:13)
[2017-08-05 16:00] VITALS: BP 128/64; PULSE 60; RESP 15; TEMP 98.5; O2SAT 98
[2017-08-05] MEDS: ALPRAZolam 0.25 MG TAB PO PRN (17:24)
== END 2017-08-05 18:08 | disposition home or self-care (01) | DRG 391 ==
LOC: PHED 07:27 → OBSVTOIN 12:27 → PHEDA 12:27 → PH3B 13:54
PROVIDERS: ADMIT Hospitalist; ATTEND Hospitalist
PROC: 0DB58ZX Excision of Esophagus, Via Natural or Artificial Opening Endoscopic, Diagnostic (ICD-10-PCS; principal; 2017-08-03)
PROC: 0DB68ZX Excision of Stomach, Via Natural or Artificial Opening Endoscopic, Diagnostic (ICD-10-PCS; 2017-08-03)
DX: A08.4 Viral intestinal infection, unspecified (principal); E11.10 Type 2 diabetes mellitus with ketoacidosis without coma; N17.9 Acute kidney failure, unspecified; K22.10 Ulcer of esophagus without bleeding; E86.0 Dehydration; K76.0 Fatty (change of) liver, not elsewhere classified; K26.9 Duodenal ulcer, unspecified as acute or chronic, without hemorrhage or perforation; E11.22 Type 2 diabetes mellitus with diabetic chronic kidney disease; Z79.84 Long term (current) use of oral hypoglycemic drugs; Z79.4 Long term (current) use of insulin; I12.9 Hypertensive chronic kidney disease with stage 1 through stage 4 chronic kidney disease, or unspecified chronic kidney disease; N18.9 Chronic kidney disease, unspecified; K31.7 Polyp of stomach and duodenum; K29.80 Duodenitis without bleeding; H91.90 Unspecified hearing loss, unspecified ear; N40.0 Benign prostatic hyperplasia without lower urinary tract symptoms; Z85.828 Personal history of other malignant neoplasm of skin; Z87.891 Personal history of nicotine dependence
CPT/HCPCS: 74177; 80048; 80053; 81001; 81002; 82941; 82948; 83605; 83690; 85025; 87040; 88305; 88312; 93005; 96361; 96372; 96374; 96375; C9113; J0500; J1650; J7030; J7120; Q9967

== ENCOUNTER 2017-08-11 13:14 | Emergency (ER) | payer MEDICARE, OTHER ==
[~2017-08-11] VITALS: Ht 172.7 cm; Wt 83.0 kg
[~2017-08-11 13:14] MED LIST changes: -ALPR-138 PO; +ALPR0.25 PO; -ASPI81TA82 PO; +ATEN100T PO; -ATEN1TAB75 PO; -BACT800T5 PO; +CRANCAP2 PO; -DYAZ37.52 PO; +FENO134C PO; -FENO54TA PO; +GAVISUS PO; +GLIM4TAB PO; -HYDR-3534 PO; -LANTUS2P SC; +LANTUS2P SQ; +LIDO1SOL8 SWISH-SWAL; +MILK500C2 PO; +OMEGCAP PO; +PANT40TA3 PO; +RANI150T PO; +TAMS0.4C4 PO; +TRIA37.53 PO; +VITA200C3 PO
[2017-08-11 13:21] VITALS: BP 134/59; PULSE 69; RESP 18; TEMP 97.9; O2SAT 96
--- NOTE | 2017-08-11 14:48 | PD ---
HPI Chief Complaint: Musculoskeletal Complaint Time Seen by Provider: 14:06 Travel History International Travel<30 days: No Contact w/Intl Traveler<30days: No Traveled to known affect area: No History of Present Illness HPI 77-year-old male presents to the emergency room for evaluation of acute on chronic left knee pain for the past 2 days. Patient denies any trauma or injury. Patient states he had arthroscopy many years ago for this pain because of injury. He came to the emergency room in 2014 for the left knee effusion. He does not have an orthopedic physician. He has not taken any medications or applied anything to the knee. Pain is severe, worse with range of motion and when he pushes on it. Localized to the medial aspect without radiation. States he cannot stand on it or walk. He is not on any anticoagulants. He denies history of gout. PFSH Past Medical History Arthritis: Yes Anxiety: Yes Cancer: Yes (SKIN) High Cholesterol: Yes Diabetes: Yes Patient Takes Glucophage: No Diminished Hearing: Yes (no hearing aids) Diverticulitis: Yes Gastrointestinal Disorders: Yes GERD: Yes Genitourinary: Yes (decreased kidney function, difficulty urinating enlarged prostate) Hypertension: Yes Neurologic: No Respiratory: No Immunizations Current: Yes Renal Failure: Yes (STAGE 3 ) Ulcer: Yes Influenza Vaccination: No ?: Not Past Surgical History Abdominal Surgery: Yes (RIGHT ING HERNIA REPAIR) Cholecystectomy: Yes Insulin Pump: No Joint Replacement: No Pacemaker: No Tonsillectomy: Yes Social History Alcohol Use: No (QUIT) Tobacco Use: No (quit 18 yrs ago ) Substance Use: No Allergies-Medications (Allergen,Severity, Reaction): Coded Allergies: No Known Allergies (Verified Adverse Reaction, Unknown, 08/11/17) Reported Meds & Prescriptions Reported Meds & Active Scripts Active Hydrocodone-Acetamin 5-325 mg (Hydrocodone/Acetaminophen) 5 Mg-325 Mg Tablet 1 Tab PO Q6HR PRN Gaviscon Liq (Aluminum Hydroxide-Mag Carb Liq) 95-358 Mg/15 Ml Susp 15-30 Ml PO QID PRN Maximum 120 mL/24 hrs. Lidocaine Viscous Liq 2 % Liqd 5 Ml SWISH-SWAL QID PRN Pantoprazole (Pantoprazole Sodium) 40 Mg Tab 40 Mg PO Q12HR Reported Vitamin E 200 Unit Cap 200 Units PO DAILY Milk Thistle 500 Mg Capsule 1,000 Mg PO DAILY Cranberry Urinary Comfort (Vitamins C & E) 1 Cap 1 Cap PO DAILY [place]-3 Fish Oil/Vitamin (Fish Oil-Cholecalciferol) 1,000-1,000 Mg Cap 1 Cap PO DAILY Atenolol 100 Mg Tab 100 Mg PO DAILY Ranitidine (Ranitidine HCl) 150 Mg Tab 150 Mg PO BID Fenofibrate Micronized 134 Mg Cap 134 Mg PO DAILY Glimepiride 4 Mg Tab 4 Mg PO BIDAC Lisinopril 40 Mg Tab 40 Mg PO DAILY Triamterene-Hydrochlorothiazide 37.5-25 Mg Cap 2 Cap PO DAILY Alprazolam 0.25 Mg Tab 0.25 Mg PO DAILY PRN Tamsulosin (Tamsulosin HCl) 0.4 Mg Cap 0.4 Mg PO HS Lantus Inj (Insulin Glargine) 1,000 Unit/10 Ml Vial 30 Units SQ BID Review of Systems Except as stated in HPI: all other systems reviewed are Neg Physical Exam Narrative GENERAL: Well-nourished, well-developed male no acute distress. Afebrile. SKIN: Focused skin assessment warm/dry. No erythema or ecchymosis. Mild increased warmth of the left knee. HEAD: Normocephalic. EYES: No scleral icterus. No injection or drainage. NECK: Supple, trachea midline. No JVD or lymphadenopathy. CARDIOVASCULAR: Regular rate and rhythm without murmurs, gallops, or rubs. RESPIRATORY: Breath sounds equal bilaterally. No accessory muscle use. MUSCULOSKELETAL: No cyanosis. Obvious, large effusion of the left knee. Extreme tenderness to palpation of the medial aspect. Patient can flex his knee to 90 and has full extension. Bounding 2+ dorsalis pedis pulse. Data Data Last Documented VS Vital Signs Date Time Temp Pulse Resp B/P (MAP) Pulse Ox O2 Delivery O2 Flow Rate FiO2 08/11/17 16:17 18 08/11/17 13:21 97.9 69 134/59 (84) 96 Orders Orders Knee, Ltd (1 Or 2vws) (08/11/17 ) Oxycodone-Acetamin 5-325 Mg (Percocet (08/11/17 15:00) Blood Glucose (08/11/17 15:03) Fluid Culture And Gram Stain (08/11/17 16:17) Synovial Fl Cell Count + Diff (08/11/17 16:17) Synovial Fluid Crystals (08/11/17 16:17) Synovial Fluid Glucose (08/11/17 16:17) Synovial Fluid Total Protein (08/11/17 16:17) Ed Discharge Order (08/11/17 17:43) Labs Laboratory Tests Test 08/11/17 16:22 Synovial Fluid Color YELLOW Synovial Fluid Appearance MARKED Synovial Fluid WBC 70279 /MM3 Synovial Fluid RBC 70 /MM3 Synovial Fluid Crystals NONE MDM Medical Decision Making Medical Screen Exam Complete: Yes Emergency Medical Condition: Yes Medical Record Reviewed: Yes Differential Diagnosis Effusion, strain, fracture, contusion Narrative Course 77-year-old male presents to the emergency room via ambulance for evaluation of left knee pain that started 2 days ago. Patient denies trauma or injury. States pain is severe, worse with range of motion. Patient states he cannot walk because of pain. He denies any fevers. He has history of problems with this knee in the past. Physical exam reveals extreme tenderness to palpation of the knee with obvious, large effusion. There is no erythema or increased warmth. Patient has full range of motion. At rest he has his leg extended 180 . He is able to bend it to 90. X-ray shows osteoarthritis with moderate effusion. He was given Percocet for pain with minimal relief in symptoms. Patient requested aspiration for pain relief. Patient was educated on the risks of knee aspiration in the ER including but not limited to infection but was adamant about having it performed. 30 cc was drawn from the knee, see procedure note for details. Synovial testing shows almost 30,000 WBCs in the left knee; unlikely infection. No crystals. Cultures ordered and pending. I suspect patient has an effusion from osteoarthritis. He was discharged with prescription for Lortab and told to follow-up with an orthopedic surgeon return for worsening symptoms. He understands and agrees to plan. Procedures Procedure Narrative Arthrocentesis of the knee: Risks and benefits of procedure were discussed with the patient and he opted to proceed with procedure. The left knee was prepped with Betadine and sterilely draped. The skin was infiltrated with 1% lidocaine with epinephrine. Maintaining sterile procedure, an 18-gauge needle was injected just posterior to the medial portion of the patella. The needle was pulled back and 30 cc of cloudy fluid was removed. Needle was removed and pressure was applied to the wound. Sterile dressing applied. Patient tolerated the procedure well. Diagnosis Primary Impression: Effusion, left knee Referrals: Primary Care Physician Additional Instructions: Rest and drink plenty of fluids. Keep knee wrapped. Lortab for pain. Do not drink alcohol or drive while taking this medication. Follow-up with a primary care physician. Return to the emergency room for worsening symptoms. Scripts Hydrocodone/Acetaminophen (Hydrocodone-Acetamin 5-325 mg) 5 Mg-325 Mg Tablet 1 TAB PO Q6HR Y for PAIN 1 TO 10 AND/OR AGITATION, #12 Prov: Brooklyn Huitron DO 08/11/17 Disposition: 01 DISCHARGE HOME Condition: Stable Nishi Beaulieu Aug 11, 2017 14:48
[2017-08-11] MEDS ORDERED: oxyCODONE/ACETAMINOPHEN 5 MG/325 MG TAB PO ONE (15:00)
--- NOTE | 2017-08-11 15:51 | RADRPT ---
EXAM DATE/TIME: 08/11/2017 15:32 [facility] COMPARISON: No previous studies available for comparison. INDICATIONS : Severe left knee pain, no known injury MEDICAL HISTORY : Diabetes mellitus type II. SURGICAL HISTORY : None. ENCOUNTER: Initial ACUITY: 2 days PAIN SCORE: 8/10 LOCATION: Left knee FINDINGS: There is moderate osteoarthritis of the left knee especially medially with a moderate sized knee join t effusion. No acute fracture or subluxation. Extensive vascular calcifications are present. CONCLUSION: 1. Moderate osteoarthritis left knee with joint effusion. Arturo Baker MD on August 11, 2017 at 15:47 Board Certified Radiologist. This report was verified electronically.
[2017-08-11 16:17] VITALS: RESP 18
[2017-08-11 17:12] LABS: WBC, SYNOVIAL FLUID 29920 /MM3 (0-200)
--- NOTE | 2017-08-11 17:23 | PD ---
Data Data Last Documented VS Vital Signs Date Time Temp Pulse Resp B/P (MAP) Pulse Ox O2 Delivery O2 Flow Rate FiO2 08/11/17 16:17 18 08/11/17 13:21 97.9 69 134/59 (84) 96 Orders Orders Knee, Ltd (1 Or 2vws) (08/11/17 ) Oxycodone-Acetamin 5-325 Mg (Percocet (08/11/17 15:00) Blood Glucose (08/11/17 15:03) Fluid Culture And Gram Stain (08/11/17 16:17) Synovial Fl Cell Count + Diff (08/11/17 16:17) Synovial Fluid Crystals (08/11/17 16:17) Synovial Fluid Glucose (08/11/17 16:17) Synovial Fluid Total Protein (08/11/17 16:17) Labs Laboratory Tests Test 08/11/17 16:22 Synovial Fluid Color YELLOW Synovial Fluid Appearance MARKED Synovial Fluid WBC 56096 /MM3 Synovial Fluid RBC 70 /MM3 MDM Supervised Visit with MARICEL: Yes Narrative Course I, Dr. Knight, have reviewed the advance practice practitioner's documentation and am in agreement, met with the patient face to face, made the diagnosis, and the medical decision making was done by me. *My assessment and Findings: Patient seen and examined by me in addition to Nishi VELIZ, this patient has had knee effusion, and the low clinical cyst or septic arthritis, decision was made to tap the joint for pain relief and patient is feeling somewhat better, will ultimately be discharged home. 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 I was present for the entire procedure performed. Referrals: Primary Care Physician Additional Instruction: Rest and drink plenty of fluids. Keep knee wrapped. Lortab for pain. Do not drink alcohol or drive while taking this medication. Follow-up with a primary care physician. Return to the emergency room for worsening symptoms. Disposition: 01 DISCHARGE HOME Condition: Stable Anibal Knight MD Aug 11, 2017 17:23
[2017-08-11] MEDS ORDERED: HYDR-3516 PO (17:44)
== END 2017-08-11 17:54 | disposition home or self-care (01) ==
LOC: PHEFT 13:14
DX: M25.462 Effusion, left knee (principal); M17.12 Unilateral primary osteoarthritis, left knee; F41.9 Anxiety disorder, unspecified; E78.00 Pure hypercholesterolemia, unspecified; K21.9 Gastro-esophageal reflux disease without esophagitis; I12.9 Hypertensive chronic kidney disease with stage 1 through stage 4 chronic kidney disease, or unspecified chronic kidney disease; E11.22 Type 2 diabetes mellitus with diabetic chronic kidney disease; N18.3 Chronic kidney disease, stage 3 (moderate); Z87.19 Personal history of other diseases of the digestive system
CPT/HCPCS: 20610; 73560; 82945; 84157; 87070; 87205; 89051; 89060